=== PATIENT | male | born 1950 | race Caucasian/White ===

== ENCOUNTER → 2018-04-27 | Outpatient (CLI) | payer MEDICARE, OTHER | END | disposition home or self-care (01) | LOC: PCVCCLINIC 15:13 | PROVIDERS: ATTEND Internal Medicine | DX: R93.1 Abnormal findings on diagnostic imaging of heart and coronary circulation (principal); R00.2 Palpitations; E78.5 Hyperlipidemia, unspecified; M15.9 Polyosteoarthritis, unspecified; Z87.898 Personal history of other specified conditions; Z72.89 Other problems related to lifestyle | CPT/HCPCS: 93005; G0463 ==

== ENCOUNTER → 2018-05-14 | Outpatient (CLI) | payer MEDICARE, OTHER ==
--- NOTE | 2018-05-15 01:31 | PCVCIMAG ---
APPROVED REPORT Study performed: 05/14/2018 10:16:08 Exam: Stress Echocardiogram Indication: Palpitations , CAD , Syncope Patient Location: Echo lab Stress Nurse: Kelsie Bertrand RN Room #: 2 Status: routine Ht: 5 ft 10 in HR: 76 bpm BP: 118/78 mmHg Medical History Medical History: CAD non obstructive,, Hyperlipidemia,Syncope,palpitations Cardiac Risk Factors: Hyperlipidemia Previous Cardiac Procedures: none Pretest Chest Pain Characteristics: No chest pain Exercise History: Physically active Procedure The patient underwent an Exercise Stress Test using the James Protocol. Blood pressure, heart rate, and EKG were monitored. An Echocardiogram was performed by configuration technician in four stages in quad fashion. At peak stress, four selected images were obtained and placed side by side with resting images for comparison. Stress Test Details Stress Test: Exercise stress testing was performed using a James protocol. HR Resting HR: 76 bpmMax Heart Rate (APMHR): 155 bpm Max HR Achieved: 176 bpmTarget HR (85% APMHR): 131 bpm % of APMHR: 113 Recovery HR: 96 bpm HR response to stress: Normal HR response to stress BP Resting BP: 118/78 mmHg Max BP: 180/72 mmHg Recovery BP: 142/82 mmHg BP response to stress: Normal blood pressure response to stress. ECG Resting ECG: Sinus Rhythm with PAC Stress ECG: Sinus Rhythm ST Change: Downsloping ST depression Maximum ST Deviation: -1.9 mm Arrhythmia: Frequent couplet PVCs,several short runs PVCs at peak exercise Recovery ECG: SVT Recovery ST Change: Non-ischemic Recovery ST Deviation: -1.0 mm Recovery Arrhythmia: SVT Clinical Reason for Termination: Maximal effort Stress Symptoms: fatigue Exercise duration: 10 min 00 sec Highest Stage Achieved: Stage 4: 4.2 mph at 16% grade. Exercise capacity: 13.4 METs Overall Exercise Capacity for Age: Good Scale: Active Angina Score: None No complications. Stress ECG Conclusion The patient exercised according to the JAMES protocol for10:00 mins; achieving a work level of 13.4 METS. The resting heart rate of76 bpm shashi to a maximum heart rate of 176 bpm. This value represent 113% of the maximal, age-predicted heart rate. The resting blood pressure of 118/78 mmHg, shashi to a maximum blood pressure of 180/72 mmHg. The exercise test was stopped due to fatigue. [place] Treadmill Score is 19.5 which is Low risk. Pre-Stress Echo The resting Echocardiogram showed normal left ventricular contractility with an estimated Ejection Fraction of about 55-60%. Normal wall motion in all segments on baseline images. Post-Stress Echo The stress Echocardiogram showed normal left ventricular contractility with an estimated Ejection Fraction of about 65-70%. Normal augmentation of wall motion in all segments on post stress images. Conclusion Clinical Response: Non-ischemic Exercise Capacity: Superior Stress ECG Response: Equivocal Stress Echo Images: Equivocal Frequent PVCs and short runs were seen at peak exercise, SVT was sen for approximately 5 minutes post. Images are equivocal 1. low to intermediate risk study based on exercise induced ventricular ectopy <Conclusion> Frequent PVCs and short runs were seen at peak exercise, SVT was sen for approximately 5 minutes post. Images are equivocal 1. low to intermediate risk study based on exercise induced ventricular ectopy
== END | disposition home or self-care (01) ==
LOC: PCVCIMAG 13:00
PROVIDERS: ATTEND Internal Medicine
DX: Z01.812 Encounter for preprocedural laboratory examination (principal); R94.39 Abnormal result of other cardiovascular function study; I49.9 Cardiac arrhythmia, unspecified; R93.1 Abnormal findings on diagnostic imaging of heart and coronary circulation; R00.2 Palpitations; E78.5 Hyperlipidemia, unspecified
CPT/HCPCS: 36415; 93325; 93351; G0463

== ENCOUNTER → 2018-07-07 | Outpatient (CLI) | payer MEDICARE, OTHER | END | disposition home or self-care (01) | LOC: PCVCCLINIC 09:58 | PROVIDERS: ATTEND Internal Medicine | DX: I25.10 Atherosclerotic heart disease of native coronary artery without angina pectoris (principal); I49.9 Cardiac arrhythmia, unspecified; E78.5 Hyperlipidemia, unspecified | CPT/HCPCS: G0463 ==

== ENCOUNTER → 2018-11-16 | Outpatient (CLI) | payer MEDICARE, OTHER | END | disposition home or self-care (01) | LOC: PCVCCLINIC 14:08 | PROVIDERS: ATTEND Internal Medicine | DX: I48.92 Unspecified atrial flutter (principal); E78.5 Hyperlipidemia, unspecified; G47.33 Obstructive sleep apnea (adult) (pediatric); Z79.899 Other long term (current) drug therapy; Z72.89 Other problems related to lifestyle | CPT/HCPCS: 93005; G0463 ==